=== PATIENT | female | born 1970 | race Caucasian/White ===

== ENCOUNTER 2019-12-18 08:33 | Outpatient (CLI) | payer BC, SELFPAY ==
--- NOTE | 2019-12-18 08:38 | MM_ITS ---
WS: [id number] BILATERAL DIGITAL SCREENING MAMMOGRAPHY WITH CAD CLINICAL INFORMATION: SCREENING COMPARISON: 3 ,019 and 5 ,019 TECHNIQUE: Bilateral CC and MLO views. FINDINGS: Scattered fibroglandular densities bilaterally. No suspicious focal mass, asymmetry, calcifications, or architectural distortion. No evidence of malignancy. MM/[place] [id number] IMPRESSION: BI-RADS: 1-Negative FOLLOW UP: 1 Year Follow-up Recommend return to annual screening mammography.
== END 2019-12-18 08:34 | disposition home or self-care (01) ==
LOC: RADSHAW 08:36
PROVIDERS: PCP Family Medicine; Visit Provider Nurse Practitioner Women's Health
DX: Z12.31 Encounter for screening mammogram for malignant neoplasm of breast (principal)
CPT/HCPCS: 77067

== ENCOUNTER 2021-01-06 08:57 | Outpatient (CLI) | payer OTHER, SELFPAY ==
--- NOTE | 2021-01-06 09:08 | MM_ITS ---
WS: [id number] BILATERAL SCREENING DIGITAL MAMMOGRAM WITH CAD HISTORY: SCREENING COMPARISON: 12/18/2019 and 07/24/2018 Bilateral CC and MLO views submitted. Computer aided detection analyzed. Breast composition: There are scattered areas of fibroglandular density. No suspicious masses, microc alcifications or architectural distortion. MM/[place] [id number] IMPRESSION: BI-RADS: 1-Negative FOLLOW UP: 1 Year Follow-up
== END 2021-01-06 08:58 | disposition home or self-care (01) ==
LOC: RADSHAW 09:02
PROVIDERS: PCP Family Medicine; Visit Provider Family Medicine
DX: Z12.31 Encounter for screening mammogram for malignant neoplasm of breast (principal)
CPT/HCPCS: 77067

== ENCOUNTER → 2021-02-10 11:27 | Outpatient (BNVA) | payer OTHER, SELFPAY | PROVIDERS: PCP Family Medicine; Visit Provider Family Medicine | DX: R07.9 Chest pain, unspecified (principal); R20.2 Paresthesia of skin; M26.609 Unspecified temporomandibular joint disorder, unspecified side | CPT/HCPCS: 80053; 83036; 83880; 84443; 85025; 85651; 86140 ==

== ENCOUNTER 2021-03-09 12:47 | Outpatient (CLI) | payer OTHER, SELFPAY ==
--- NOTE | 2021-03-09 12:51 | CT_ITS ---
WS: [id number] CT HEAD TECHNIQUE: Noncontrast CT of the head obtained from the skullbase to the vertex. CLINICAL INFORMATION: R07.9 - Chest pain, unspecified COMPARISON: None. DLP: 925.[address] scans at [facility] use at least one of these dose optimization techniques: automated e xposure control; mA and/or kV adjustment per patient size (includes targeted exams where dose is matc hed to clinical indication); or iterative reconstruction. FINDINGS: No evidence of intracranial hemorrhage or mass effect. Ventricular system and basal cisterns are jara nt. Mild parenchymal volume loss. No extra-axial fluid collections. No evidence of mass or mass effec t. Normal joaquin-white differentiation. Paranasal sinuses and mastoid air cells are well aerated. .Normal visualized soft tissues. CT/CT head wo con* [id number] IMPRESSION: 1. No evidence of intracranial hemorrhage or mass effect. 2. Mild parenchymal volume loss. 3. No acute intracranial findings.
== END 2021-03-09 12:48 | disposition home or self-care (01) ==
PROVIDERS: PCP Family Medicine; Visit Provider Family Medicine
DX: R07.9 Chest pain, unspecified (principal); R20.2 Paresthesia of skin
CPT/HCPCS: 70450

== ENCOUNTER 2021-04-10 14:54 | Outpatient (CLI) | payer OTHER, SELFPAY ==
--- NOTE | 2021-04-10 15:00 | USCV_ITS ---
Jossie Flores Age: 50 Gender: F : 1970 Exam Date: 04/10/2021 15:04 Ordering Phys: Juliocesar Gipson MD Technologist: Mariam Velasco [place] [facility] [place]: CHEST PAIN Risk Factors: Unknown Previous Vascular Surgery: Unknown Right Brachial BP: / Left Brachial BP: / Right Left Velocity (cm/s) Spectral Plaque Velocity (cm/s) Spectral Plaque Syst/Diast Broadening Syst/Diast Broadening 93.70/ 28.70 Prox CCA 85.80 / 29.20 91.50/ 26.50 Mid CCA 89.30 / 32.00 76.10/ 23.20 Distal CCA 71.70 / 23.20 79.40/ 28.20 Prox ICA 61.40 / 28.70 71.30/ 23.60 Mid ICA 86.20 / 44.10 78.00/ 21.40 Distal ICA 80.70 / 32.10 87.10 ECA 78.30 0.87 ICA/CCA 0.96 Antegrade Vertebral Antegrade 30.70/ 9.70 cm/s 50.40/ 15.00 cm/s Tri Subclavian Tri 67.50 61.90 FINDINGS Normal Doppler flow velocities No significant plaques or any unstable lesions. Antegrade flow in the vertebral arteries bilaterally CONCLUSIONS No significant obstructive lesions noted in the extracranial carotid system. Dr Brain Chapman MD [facility] (Electronically Signed) Final Date: 10 April 2021 17:41 S
--- NOTE | 2021-04-10 15:45 | USCV_ITS ---
Mark Jossie Age: 50 Gender: F : 1970 Exam Date: 04/10/2021 15:24 Ordering Phys: Juliocesar Gipson MD Technologist: Mariam Velasco [place] [facility] [place]: CHEST PAIN BP: 145 / 68 HR: 88 Rhythm: Sinus Technical Quality: Very technically difficult study MEASUREMENTS (Male / Female) Normal Values 2D ECHO LV Diastolic Diameter PLAX 3.6 cm 4.2 - 5.9 / 3.9 - 5.3 cm LV Systolic Diameter PLAX 2.4 cm LV Chamber Size 2.4 cm IVS Diastolic Thickness 1.0 cm 0.6 - 1.0 / 0.6 - 0.9 cm IVS Systolic Thickness 1.3 cm LVPW Diastolic Thickness 1.1 cm 0.6 - 1.0 / 0.6 - 0.9 cm LVPW Systolic Thickness 1.2 cm RV Chamber Size 2.3 cm LVOT Diameter 1.8 cm LV Ejection Fraction 2D Teich 61.3 % LA Diameter 3.1 cm LA Width 3.0 cm LA Height 3.9 cm RA Width 2.7 cm RA Height 3.7 cm Aorta at Sinotubular Diameter 3.3 cm M-MODE Aortic Annulus Diameter 3.1 cm LA Ao Ratio MM 1.1 DOPPLER AV Peak Velocity 105.0 cm/s LVOT Peak Velocity 85.0 cm/s AV Area Cont Eq vti 2.0 cm squared AV Area Cont Eq pk 2.0 cm squared MV Area PHT 5.5 cm squared Mitral E to A Ratio 0.8 MV E' Velocity 33.5 cm/s Mitral E to MV E' Ratio 7.1 Mitral E to LV E' Lateral Ratio 7.5 Mitral E to LV E' Septal Ratio 6.7 TR Peak Velocity 137.4 cm/s TR Peak Gradient 7.6 mmHg TR Mean Velocity 109.8 cm/s TR Mean Gradient 5.6 mmHg TR Velocity Time Integral 32.0 cm Right Atrial Pressure 3.0 mmHg Pulmonary Artery Systolic Pressu 10.6 mmHg PV Peak Velocity 67.0 cm/s RV Acceleration Time 0.1 s RV Ejection Time 0.3 s RV AcT/ET 0.4 FINDINGS Left Ventricle Possibly normal LV size ejection fraction of around 55%. Segmental wall motion analysis difficult because of the poor ultrasonic window. The septum was found to be slightly hypokinetic Right Ventricle Possibly of normal size Right Atrium Possibly of normal size Left Atrium Normal left atrial size. Mitral Valve No gross abnormalities noted Aortic Valve No gross abnormalities noted Tricuspid Valve Trace tricuspid valve regurgitation. Pulmonic Valve Pulmonic valve not well visualized. Pericardium No pericardial effusion. Aorta Normal aortic annulus size. CONCLUSIONS Possibly normal LV size ejection fraction of around 55%. Segmental wall motion analysis difficult because of the poor ultrasonic window. The septum was found to be slightly hypokinetic. Trace tricuspid valve regurgitation. Technically difficult study because of the poor ultrasonic window. No previous study is available for comparison. Dr Brain Chapman MD FAC (Electronically Signed) Final Date: 10 April 2021 17:15 S
== END 2021-04-10 14:55 | disposition home or self-care (01) ==
LOC: US 14:55
PROVIDERS: PCP Family Medicine; Visit Provider Family Medicine
DX: R07.9 Chest pain, unspecified (principal); R20.2 Paresthesia of skin; I07.1 Rheumatic tricuspid insufficiency
CPT/HCPCS: 93306; 93880

== ENCOUNTER 2021-05-09 09:58 | Emergency (ER) | payer OTHER, SELFPAY ==
[2021-05-09 10:07] VITALS: BP 121/88; PULSE 87; RESP 14; TEMP 36.7; O2SAT 96; BMI 33.5
--- NOTE | 2021-05-09 10:17 | ECG_ITS ---
[facility] Test Date: 2021-05-09 Pat Name: Jossie Flores Department: Room: Gender: Female Correctional Program Specialist: : 1970 Requested By: Tigre Curtis Order Number: [id number] Joshua MD: Gillian Scott M.D. Measurements Intervals [place] Rate: 89 P: 32 IA: 153 QRS: 4 QRSD: 78 T: 9 QT: 329 QTc: 401 Interpretive Statements SINUS RHYTHM LOW QRS VOLTAGE IN PRECORDIAL LEADS [QRS DEFLECTION < 1.0 mV IN CHEST LEADS] No previous ECG available for comparison Electronically Signed On 05-10-2021 8:15:19 SKILLED NURSING FACILITY COUNSELOR by Gillian Scott M.D. [id number]
--- NOTE | 2021-05-09 10:17 | XRR_ITS ---
PROCEDURE INFORMATION: Exam: XR Chest Exam date and time: 05/09/2021 10:17 AM Age: 51 years old Clinical indication: Left-sided; Prior surgery; Surgery date: 6+ months; Surgery type: Elective breast reduction; Patient HX: C/O chest pain starting a month ago and has stayed intermittent. C/O left chest pain and left arm today. TECHNIQUE: Imaging protocol: XR of the chest. Views: 1 view. COMPARISON: No relevant prior studies available. FINDINGS: Lungs: Unremarkable. No consolidation. Pleural spaces: Unremarkable. No pleural effusion. No pneumothorax. Heart/Mediastinum: Unremarkable. No cardiomegaly. Bones/joints: Unremarkable. XR/XR chest 1V portable [id number] IMPRESSION: No acute findings.
[2021-05-09 10:49] LABS: Basophils % 0.5 %; Eosinophils # 0.1 10^3/uL (0.0-0.8); Eosinophils % 1.2 %; Hematocrit 49.2 % (37.0-47.0); Hemoglobin 16.1 g/dL (11.5-15.3); Lymphocytes # 2.3 10^3/uL (0.8-4.8); Mean Corpuscular HGB Conc 32.7 g/dL (30.0-36.0); Mean Corpuscular Hemoglobin 31.1 pg (28.0-34.0); Mean Corpuscular Volume 95.2 fl (81-99); Mean Platelet Volume 11.1 fL (7.4-10.4); Monocytes # 0.4 10^3/uL (0.2-0.9); Monocytes % 4.9 %; Neutrophils % 67.1 %; Nucleated Red Blood Cells % 0 %; Platelet Count 307 10^3/cmm (130-400); Red Blood Count 5.17 10^6/uL (4.1-5.3); Red Cell Distribution Width 12.1 % (12.1-15.1); White Blood Count 8.6 10^3/uL (4.0-10.0)
--- NOTE | 2021-05-09 11:12 | ED_ITS ---
HPI - Chest Pain General: Chief Complaint: Chest Pain Stated Complaint: CP Time Seen by Provider: 05/09/21 10:17 History of Present Illness: HPI narrative: 51-year-old female presents emergency room with complaints of chest pain. She has had this for about the last 3 months. Intermittently she will get episodes of chest pain she had an echocardiogram ejection fraction is normal but there was some question about wall motion however the comment in the written portion of the report is that there is a poor ultrasonic windows and they really could not interpret it very well. She does not get any diaphoresis she did get some radiation into the arm of the pain today. She has mild shortness of breath with exertion. Pain currently is completely resolved. She has not been known to have any coronary arteries in the past she is not diabetic. She is currently on atorvastatin as well as carvedilol. MD complaint: chest pain Onset (ago): month(s) Timing of current episode: episodic Prior episodes: Yes Onset: during rest Pain location: left chest Pain radiation: left arm and left shoulder Severity: mild Quality: tightness and aching Relieving factors: nothing Exacerbating factors: nothing Associated symptoms: Reports dyspnea; Deny abdominal pain, diaphoresis, fever(s), leg edema, nausea, palpitations, sense of impending doom, syncope, vomiting or other Treatment prior to arrival: none Review of Systems Const: Denies: fever(s) or diaphoresis ENMT: Denies: throat pain, ear or mastoid pain, nasal discharge or nasal congestion Card: Denies: palpitations or syncope Resp: Reports: dyspnea GI: Denies: abdominal pain, nausea or vomiting : Denies: flank pain, difficulty voiding, dysuria, urinary frequency or urinary urgency Skin/Breast: Denies: rash or pruritus [facility] ED PFSH: Medical History (Updated 05/09/21 @ 14:32 by Tigre Foster DO) Depression Essential hypertension Surgical History (Updated 05/09/21 @ 11:34 by Tigre Foster DO) History of hysterectomy Hx of breast reduction, elective Social History Smoking and tobacco status: never smoked Physical Exam Const: GENERAL APPEARANCE: cooperative and comfortable ORIENTATION/CONSCIOUSNESS: Yes awake, Yes oriented to person, Yes oriented to place and Yes oriented to time HENMT: COMMON NORMALS: normocephalic, atraumatic, hearing grossly normal bilaterally, external ears normal, EAC's normal, TM's normal bilaterally, Normal nasal mucous membranes and turbinates present, moist oral mucous membranes and oropharynx normal HEAD & SCALP: normocephalic and atraumatic NOSE: Normal nasal mucous membranes and turbinates present EXTERNAL EAR: Yes external ears normal EXTERNAL AUDITORY CANAL: EAC's normal TYMPANIC MEMBRANE: TM's normal bilaterally Neck/C-Spine: COMMON NORMALS: no JVD Resp: COMMON NORMALS: normal respiratory effort, No retractions, No use of accessory muscles and clear to auscultation bilaterally AUSCULTATION: clear to auscultation bilaterally Cardio: COMMON NORMALS: no JVD, regular rate, regular rhythm and No murmurs present (Cardio) RATE: regular rate RHYTHM: regular rhythm GI: COMMON NORMALS: Soft to palpation and No hepatosplenomegaly present AUSCULTATION: Yes normoactive bowel sounds PALPATION: Yes Soft to palpation, No Tenderness to palpation present (GI), No Guarding due to palpation present (GI) and Yes No hepatosplenomegaly present Extremity: COMMON NORMALS: normal to inspection, capillary refill normal, no clubbing, cyanosis or edema, no calf tenderness and no pedal edema Neuro: SENSORIUM/ORIENTATION: Yes oriented to person, Yes oriented to place and Yes oriented to time Skin: COMMON NORMALS: no rashes or lesions noted GENERAL SKIN EXAM: no rashes or lesions noted Course Vital Signs: Vital signs: Vital Signs Temperature 98.1 F 05/09/21 10:07 Pulse Rate 92 05/09/21 14:58 Respiratory Rate 18 05/09/21 14:58 Blood Pressure 127/103 05/09/21 14:58 Pulse Oximetry 95 05/09/21 14:58 MDM - Chest Pain MDM Narrative: Medical decision making narrative: Labs imaging and EKG reviewed on the chart. Patient does not have any acute ST changes. We will get her set up for an outpatient Lexiscan sestamibi stress test. Have her stop the candesartan and start isosorbide mononitrate continue aspirin daily. If she has any worsening pain or symptoms return to the emergency room immediately. Lab Data: Labs: Lab Results 05/09/21 05/09/21 05/09/21 10:35 10:35 10:35 WBC 8.6 10^3/uL 10^3/ uL (4.0-10.0) RBC 5.17 10^6/uL 10^6 /uL (4.1-5.3) Hgb 16.1 g/dL H g/dL (11.5-15.3) Hct 49.2 % H % (37.0-47.0) MCV 95.2 fl fl (81-99) MCH 31.1 pg pg (28.0-34.0) MCHC 32.7 g/dL g/dL (30.0-36.0) RDW 12.1 % % (12.1-15.1) Plt Count 307 10^3/cmm 10^3 /cmm (130-400) MPV 11.1 fL H fL (7.4-10.4) Neut % (Auto) 67.1 % % Lymph % (Auto) 26.0 % % Bartholomew % (Auto) 4.9 % % Eos % (Auto) 1.2 % % Baso % (Auto) 0.5 % % Neut # (Auto) 5.80 10^3/uL 10^3 /uL (1.8-7.7) Lymph # (Auto) 2.3 10^3/uL 10^3/ uL (0.8-4.8) Bartholomew # (Auto) 0.4 10^3/uL 10^3/ uL (0.2-0.9) Eos # (Auto) 0.1 10^3/uL 10^3/ uL (0.0-0.8) Baso # (Auto) 0.0 10^3/uL 10^3/ uL (0.0-0.1) Nucleated RBC % (a uto) 0 % % Nucleated RBCs # 0.0 /100WBC /100W BC Sodium 139 mmol/L mmol/L (136-145) Potassium 4.9 mmol/L mmol/L (3.5-5.1) Chloride 104 mmol/L mmol/L (98-107) Carbon Dioxide 25 mmol/L mmol/L (22-29) Anion Gap 14.9 (5-19) BUN 10 mg/dL mg/dL (6-20) Creatinine 0.5 mg/dL mg/dL (0.5-0.9) GFR Calculation 131.1 mL/min H mL /min (90-130) Glucose 82 mg/dL mg/dL (65-115) Calculated Osmolal ity 286 mOsm/kg mOsm/ kg (285-295) Calcium 10.1 mg/dL mg/dL (8.5-10.5) Total Bilirubin 0.4 mg/dL mg/dL (0.15-1.2) AST 25 U/L U/L (0-32) ALT 59 U/L H U/L (0-33) Alkaline Phosphata se 128 IU/L H IU/L (35-105) Troponin T Baselin e 6 ng/L ng/L (0-10) Troponin T 120 Min [place] Troponin T Total Protein 6.5 g/dL L g/dL (6.6-8.7) Albumin 4.5 g/dL g/dL (3.5-5.2) Globulin 2.0 g/dL g/dL (1.3-4.6) 05/09/21 12:10 WBC RBC Hgb Hct MCV MCH MCHC RDW Plt Count MPV Neut % (Auto) Lymph % (Auto) Bartholomew % (Auto) Eos % (Auto) Baso % (Auto) Neut # (Auto) Lymph # (Auto) Bartholomew # (Auto) Eos # (Auto) Baso # (Auto) Nucleated RBC % (a uto) Nucleated RBCs # Sodium Potassium Chloride Carbon Dioxide Anion Gap BUN Creatinine GFR Calculation Glucose Calculated Osmolal ity Calcium Total Bilirubin AST ALT Alkaline Phosphata se Troponin T Baselin e Troponin T 120 Min [place] 6.00 ng/L ng/L (0-10) Delta Troponin T 0 ABS# ABS# (0-10) Total Protein Albumin Globulin Discharge Plan Discharge Patient Disposition: Home Clinical Impression: Chest pain Condition: Stable Prescriptions: New isosorbide mononitrate 30 mg tablet extended release 24 hr 30 mg PO DAILY Qty: 30 RF: 0 Discontinued candesartan 8 mg tablet 8 mg PO DAILY RF: 0 No Action bupropion HCl [Wellbutrin XL] 150 mg tablet extended release 24 hr 150 mg PO QAM RF: 0 carvedilol [Coreg] 3.125 mg tablet 3.125 mg PO BID 30 Days Qty: 60 RF: 0 aspirin 81 mg tablet,delayed release (DR/EC) 81 mg PO DAILY 90 Days Qty: 90 RF: 0 atorvastatin 40 mg tablet 40 mg PO DAILY 90 Days Qty: 90 RF: 1 nitroglycerin 0.4 mg tablet, sublingual 0.4 mg sublingual Q5M PRN (Reason: chest pain) 30 Days Qty: 30 RF: 0 Discharge Orders: Discharge ED (Routine); Ordered 05/09/21 Ordered By: Tigre Foster Referrals: Juliocesar Gipson MD [Primary Care Provider] - Discharge Diet: Usual diet Discharge Activity: Limit activity as instructed Patient Instructions: Opioid Safety Activity Restrictions/Additional Instructions: No heavy exertional activities. Follow-up with your primary care provider on getting the stress test set up that you had discussed with them previously. Stop the candesartan and instead start isosorbide mononitrate. Continue aspirin daily. If you have worsening or change symptoms return to the emergency room. Coding Level of Care Code ED Housekeeping Supervisor for Gato Fwd Exam Comprehensive
[2021-05-09 11:18] LABS: Alanine Aminotransferase 59 U/L (0-33); Albumin Level 4.5 g/dL (3.5-5.2); Alkaline Phosphatase 128 IU/L (35-105); Anion Gap 14.9 (5-19); Aspartate Amino Transferase 25 U/L (0-32); Blood Urea Nitrogen 10 mg/dL (6-20); Calcium 10.1 mg/dL (8.5-10.5); Carbon Dioxide 25 mmol/L (22-29); Chloride 104 mmol/L (98-107); Glomerular Filtration Rate 131.1 mL/min (90-130); Glucose 82 mg/dL (65-115); Osmolality Calculated 286 mOsm/kg (285-295); Potassium 4.9 mmol/L (3.5-5.1); Sodium 139 mmol/L (136-145); Total Bilirubin 0.4 mg/dL (0.15-1.2); Total Protein 6.5 g/dL (6.6-8.7)
[2021-05-09 11:19] LABS: Troponin(5th) Baseline 6 ng/L (0-10)
--- NOTE | 2021-05-09 11:27 | USR_ITS ---
PROCEDURE INFORMATION: Exam: US Abdomen, Limited; Right Upper Quadrant Exam date and time: 05/09/2021 11:27 AM Age: 51 years old Clinical indication: Abnormal findings; Abnormal lab test; Elevated liver enzymes; Additional info: Elevated lfts TECHNIQUE: Imaging protocol: US abdomen. Real time ultrasound with image documentation. Limited exam focused on the right upper quadrant. COMPARISON: No relevant prior studies available. FINDINGS: Liver: Unremarkable. Gallbladder: Small polyps. No gallstones. No gallbladder wall thickening or pericholecystic fluid. Negative sonographic Benito's sign, as per the performing lens generating machine tender. Common bile duct: No stones. No ductal dilatation. Pancreas: Suboptimally visualized. Right kidney: No mass. No definite stones. No hydronephrosis. US/US gall bladder [id number] IMPRESSION: Small gallbladder polyps.
[2021-05-09 11:57] VITALS: BP 129/90; PULSE 84; RESP 24; O2SAT 94
--- NOTE | 2021-05-09 12:17 | ECG_ITS ---
[facility] Test Date: 2021-05-09 Pat Name: Jossie Flores Department: Room: Gender: Female Joggle Press Operator: : 1970 Requested By: Tigre Curtis Order Number: [id number] Joshua MD: Gillian Scott M.D. Measurements Intervals [place] Rate: 74 P: 26 [place]: 168 QRS: 21 QRSD: 76 T: 15 QT: 360 QTc: 401 Interpretive Statements SINUS RHYTHM LOW QRS VOLTAGE IN PRECORDIAL LEADS [QRS DEFLECTION < 1.0 mV IN CHEST LEADS] Compared to ECG 05/09/2021 10:04:26 No significant changes Electronically Signed On 05-10-2021 8:29:27 REFRIGERATION SERVICE INSPECTOR by Gillian Scott M.D. [email or web address]
[2021-05-09 14:04] LABS: Troponin 5 2HR Delta 0 ABS# (0-10)
[2021-05-09 14:58] VITALS: BP 127/103; PULSE 92; RESP 18; O2SAT 95
== END 2021-05-09 14:59 | disposition home or self-care (01) ==
PROVIDERS: Emergency Provider Family Medicine; PCP Family Medicine
DX: R07.9 Chest pain, unspecified (principal); I10 Essential (primary) hypertension; Z79.82 Long term (current) use of aspirin
CPT/HCPCS: 71045; 76705; 80053; 84484; 85025; 93005; 99283

== ENCOUNTER 2021-07-13 06:57 | Outpatient (CLI) | payer OTHER, SELFPAY ==
--- NOTE | 2021-07-13 08:03 | NMCV_ITS ---
NM octavia perf SPECT r/s* [id number] Jossie Flores Age: 51 Gender: F : 1970 Exam Date: 07/13/2021 08:43 Ordering Phys: Juliocesar Gipson MD Technologist: ARANZA Robison Exam Location: [facility] Indications: CHEST PAIN STRESS TEST Please see separate stress test report in [facility] for full findings IMAGE PROTOCOL Rest/Stress 1 Lexiscan Day Radiopharmaceutical Dose (mCi) Administration Site Administered by Rest: Tc-99m 10.9 IV ARANZA Mary Sestamibi Stress:Tc-99m 32.6 IV ARANZA Mary Sestamibi Rest: 13-Jul-2021 60 Discovery 630 Stress: 13-Jul-2021 30 Discovery 630 0.4mg Lexiscan. Images obtained in supine and prone position. SPECT RESULTS Technical Quality: Excellent Raw Data Analysis: Normal Image Corrections: No attenuation or motion correction applied Summed Stress Score: 0 Summed Rest Score: 0 Summed Difference Score: 0 PERFUSION FINDINGS Fairly uniform myocardial tracer uptake. No significant perfusion abnormalities. FUNCTIONAL RESULTS (calculated via Gated SPECT) Stress Image LV EF (%): 80 Stress EDV (mL):75 TID: 1.09 Stress ESV (mL):15 FUNCTIONAL FINDINGS: Segmental wall motion analysis revealing no gross wall motion abnormalities. IMPRESSIONS 1. Unremarkable myocardial perfusion imaging. 2. Normal LV ejection fraction of 80%. 3. LV wall motion analysis revealing no gross wall motion normalities. 4. Normal LV volume. No significant coronary ischemia, based on the above findings Dr Brain Chapman MD [facility] (Electronically Signed) Final Date: 13 July 2021 13:27 S
--- NOTE | 2021-07-13 08:03 | ECG_ITS ---
[facility] Test Date: 2021-07-13 Pat Name: Jossie Flores Department: Room: Gender: Female Grinding Operator: Shelly Álvarez : 1970 Requested By: Juliocesar Gipson Order Number: [id number] Joshua MD: Brain Chapman M.D. Interpretive Statements NAME OF STUDY: LEXISCAN SESTAMIBI STRESS TEST INDICATION: Chest Pain, PROCEDURE: At the baseline, the EKG revealed normal sinus rhythm with some nonspecific T changes in the inferior and anterolateral leads. The baseline blood pressure was 127/83 mm Hg with a heart rate of 84 beats/min. Lexiscan was infused over a period of 20 seconds. A total of 0.4 milligrams of Lexiscan was infused. The stress phase was continued for a total of 5 minutes. Heart rate at the end of the stress phase was 124 with a blood pressure 110/82. The EKG at the peak infusion revealed more prominent ST-T changes in the anterolateral leads . Sestamibi was injected 20 seconds after the Lexiscan infusion. Blood pressure at the end of the recovery phase was 109/78 with a heart rate of 106 per minute. CONCLUSION: 1. Nonspecific EKG changes with the LexiScan infusion 2. No LexiScan induced chest pain or cardiac arrhythmia 3. Normal blood pressure and heart rate response 4. Sestamibi/sestamibi perfusion scan pending; see separate report. Electronically Signed On 07-17-2021 11:51:40 CDT by Brain Chapman M.D. [email or web address]
[2021-07-13 08:32] VITALS: BMI 33.5
[2021-07-13] MEDS: regadenoson 0.4 Mg/5 ml Syringe IVP (09:15)
[2021-07-13 09:37] VITALS: BP 109/78; PULSE 92
== END 2021-07-13 06:58 | disposition home or self-care (01) ==
LOC: RAD 06:58 → CDL 08:07
PROVIDERS: PCP Family Medicine; Visit Provider Family Medicine
DX: R07.9 Chest pain, unspecified (principal); R06.02 Shortness of breath
CPT/HCPCS: 78452; 93017; A9500; J2785

== ENCOUNTER 2022-03-08 09:46 | Outpatient (CLI) | payer OTHER, SELFPAY ==
--- NOTE | 2022-03-08 09:53 | MM_ITS ---
WS: [id number] Bilateral screening 3D tomosynthesis digital mammogram, 03/08/2022 Clinical Data: SCREENING Comparison: 01/06/2021, 12/18/2019, 09/13/2018, 07/24/2018, 01/04/2014. Findings: The breast parenchymal pattern shows fibroglandular tissue. No spiculated masses or clustered calcifi cations are seen. There are no secondary signs of carcinoma. There are mole markers on both breasts. MM/[place] [id number] Impression: 1. Negative bilateral mammogram unchanged. 2. Recommend annual screening mammograms. BIRADS: 1-Negative FOLLOW UP: 1 Year Follow-up The CAD gas and oil checker was used.
== END 2022-03-08 09:47 | disposition home or self-care (01) ==
LOC: RAD 09:46
PROVIDERS: PCP Family Medicine; Visit Provider Family Medicine
DX: Z12.31 Encounter for screening mammogram for malignant neoplasm of breast (principal)
CPT/HCPCS: 77063; 77067

== ENCOUNTER → 2022-03-29 09:42 | Outpatient (BNVA) | payer OTHER, SELFPAY | PROVIDERS: PCP Family Medicine; Visit Provider Family Medicine | DX: I10 Essential (primary) hypertension (principal); Z12.11 Encounter for screening for malignant neoplasm of colon; H61.20 Impacted cerumen, unspecified ear; J32.9 Chronic sinusitis, unspecified | CPT/HCPCS: 80053; 80061; 83036; 84443; 85025 ==

== ENCOUNTER 2022-06-11 06:56 | Day surgery (SDC) | payer OTHER, SELFPAY ==
[2022-06-10 10:23] VITALS: BMI 33.1
[2022-06-11 07:05] VITALS: BP 130/92; PULSE 88; RESP 18; TEMP 36.2; O2SAT 99
--- NOTE | 2022-06-11 07:08 | P.ANESASSM_ITS ---
Pre-Anesthetic Assessment Height/Weight: Height 1.63 m Weight 87.543 kg Temp Pulse Resp BP Pulse Ox O2 Del Method 97.1 F L 88 18 130/92 99 06/11/22 07:05 06/11/22 07:05 06/11/22 07:05 06/11/22 07:05 06/11/22 07:05 06/11/22 07:05 Operation Date: 06/11/22 08:30 Proposed Procedures p Colonoscopy [id number] ,Z11.11(Not Applicable) - Orlando Payton DO Familial anesthetic complications: NOne Was Beta Lesvia taken within 24 hours: Yes Was Clonidine taken within 24 hours: N/A Last intake: > 8hrs Social No alcohol and No tobacco Exam alert, oriented x 3, clear to auscultation bilaterally and regular rate & rhythm Airway Mallampati: Class III Dentition: full CV/HEM Hypertension Metabolic Hyperlipidemia Anesthetic Plan ASA status: 2 Anesthesia: MAC Risk of > 500 ml blood loss (7ml/kg in children): No Medications/Allergies Home Medications Medication Instructions Recorded Confirmed Last Taken Type aspirin 81 mg tablet,delayed 81 mg PO DAILY 90 days #90 tabs 03/29/22 06/10/22 06/09/22 Rx release candesartan 8 mg tablet 8 mg PO DAILY 90 days #90 tabs 03/29/22 06/10/22 06/10/22 Rx nitroglycerin 0.4 mg sublingual 0.4 mg sublingual Q5M PRN chest 03/29/22 06/10/22 Unknown Rx tablet pain 30 days #30 tabs atorvastatin 40 mg tablet 40 mg PO DAILY 06/10/22 06/10/22 06/10/22 History bupropion HCl 150 mg 24 hr tablet, 150 mg PO DAILY 06/10/22 06/10/22 06/10/22 History extended release carvedilol 3.125 mg tablet 3.125 mg PO BID 06/10/22 06/10/22 06/10/22 History Allergies Allergy/AdvReac Type Severity Reaction Status Date / Time No Known Allergies Allergy Verified 04/15/22 11:44 [facility] [place] Anesthesia Medical History (Updated 03/29/22 @ 09:30 by Juliocesar Gipson MD) Depression Essential hypertension Surgical History History of hysterectomy Hx of breast reduction, elective Social History Smoking and tobacco status: never smoked Data Anesthesia Cardiac Studies: Echocardiogram 04/10/21 Sestamibi Stress Test (Cardiology) 07/13
[2022-06-11] MEDS: sodium chloride 0.9% 1,000 ML 30 ML IV (07:18)
--- NOTE | 2022-06-11 08:14 | PM.HP ---
Providers/Chief Complaint Primary Care Provider: Juliocesar Gipson MD Chief Complaint: encounter for screening History of Present Illness Jossie Flores is a 52 year old female here for her first screening colonoscopy. She denies any problems with abdominal pain, nausea, emesis, diarrhea, constipation, hematochezia and/or melena. Only her aunt has had colon cancer before. Review of Systems General: Reports: 10 or more systems reviewed and unremarkable except in HPI and below Medications/Allergies Home Medications Medication Instructions Recorded Confirmed Last Taken Type aspirin 81 mg tablet,delayed 81 mg PO DAILY 90 days #90 tabs 03/29/22 06/10/22 06/10/22 Rx release candesartan 8 mg tablet 8 mg PO DAILY 90 days #90 tabs 03/29/22 06/10/22 06/10/22 Rx nitroglycerin 0.4 mg sublingual 0.4 mg sublingual Q5M PRN chest 03/29/22 06/10/22 Unknown Rx tablet pain 30 days #30 tabs atorvastatin 40 mg tablet 40 mg PO DAILY 06/10/22 06/10/22 06/10/22 History bupropion HCl 150 mg 24 hr tablet, 150 mg PO DAILY 06/10/22 06/10/22 06/10/22 History extended release carvedilol 3.125 mg tablet 3.125 mg PO BID 06/10/22 06/10/22 06/11/22 06:00 History Allergies Allergy/AdvReac Type Severity Reaction Status Date / Time No Known Allergies Allergy Verified 04/15/22 11:44 PFSH Acute PFSH: Medical History Depression Essential hypertension Surgical History History of hysterectomy Hx of breast reduction, elective Social History Smoking and tobacco status: never smoked Vitals/I&O/Wt Last Vital Signs Temp 97.1 F L 06/11/22 07:05 Pulse 88 06/11/22 07:05 Resp 18 06/11/22 07:05 BP 130/92 06/11/22 07:05 Pulse Ox 99 06/11/22 07:05 O2 Del Method 06/11/22 07:05 Weight last 48 hrs Weight 193 lb Physical Exam Narrative: General : Patient is well developed , no acute distress, oriented x3 Head : Normal cephalic, a-traumatic. Ears : Pinnae and external canal are normal. Hearing is normal. Eyes : PERRLA, Sclera and injection are normal. No conjunctival discharge. Nose : Mucous membranes are without erythema. Throat : buccal mucosa is normal, gums are without significant recession or hypertrophy. Lungs : Equal chest rise bilaterally, no use of accessory muscles, trachea is midline. Cor : Rate and rhythm are normal. Abdomen : Soft, ND, NT, no g/r/m Extremities : No edema, no cyanosis or clubbing, dorsalis pedis pulses are present bilaterally, non-tender to palpation of calves. Upper extremities are normal bilaterally. Back : non-tender to palpation, no CVA tenderness. Neuro : CN II - XII intact, Upper and lower extremities have equal and full strength A&P Assessment and plan (1) Encounter for screening colonoscopy: Plan Colonoscopy The risks and benefits of the procedure, including bleeding, infection, intestinal perforation requiring surgery, missed lesion were explained to the patient. The patient is understanding of the risks and wishes to proceed. Attestations Medical Necessity Statement*: Home Coding Level of Care Code Acute Code for Chg Fwd Diagnoses Encounter for screening colonoscopy Z12.11
[2022-06-11 08:32] VITALS: BP 111/72; PULSE 84; RESP 18; TEMP 36.1; O2SAT 97
[2022-06-11 08:37] VITALS: BP 115/80; PULSE 90; RESP 18; O2SAT 96
--- NOTE | 2022-06-11 13:58 | ANE.PACU2 ---
Inpatient post-anesthesia follow up: Airway intact: Yes Vital signs: Temperature 97.0 F Pulse Rate 90 Respiratory Rate 18 Blood Pressure 115/80 Pulse Oximetry 96 Oxygen Delivery Me thod Room Air Oxygen Flow Rate Fraction of Inspir ed Oxygen Hydration adequate: Yes Nausea and vomiting: No Pain level: 1 Mental status: Baseline
== END 2022-06-11 09:00 | disposition home or self-care (01) ==
PROVIDERS: PCP Family Medicine; Visit Provider Surgery
PROC: 0DJD8ZZ Inspection of Lower Intestinal Tract, Via Natural or Artificial Opening Endoscopic (ICD-10-PCS; CPT 45378; principal; 2022-06-11 08:30)
DX: Z12.11 Encounter for screening for malignant neoplasm of colon (principal); Z80.0 Family history of malignant neoplasm of digestive organs; Z79.82 Long term (current) use of aspirin; F32.A Depression, unspecified; I10 Essential (primary) hypertension; K64.8 Other hemorrhoids; E78.5 Hyperlipidemia, unspecified
CPT/HCPCS: 45378; J2704; J7030

== ENCOUNTER 2023-03-31 10:55 | Outpatient (CLI) | payer OTHER, SELFPAY ==
--- NOTE | 2023-03-31 11:00 | MM_ITS ---
WS: [id number] BILATERAL SCREENING DIGITAL TOMOSYNTHESIS MAMMOGRAM WITH CAD HISTORY: SCREENING COMPARISON: 03/08/2022 and 01/06/2021 Bilateral CC and MLO views with tomosynthesis and synthetic mammography submitted. Computer aided det ection analyzed. Breast composition: There are scattered areas of fibroglandular density. No suspicious masses, microc alcifications or architectural distortion. IMPRESSION: MM/[place] [id number] BI-RADS: 1-Negative FOLLOW UP: 1 Year Follow-up
== END 2023-03-31 10:56 | disposition home or self-care (01) ==
LOC: MOBLMAM 11:01
PROVIDERS: PCP Family Medicine; Visit Provider Family Medicine
DX: Z12.31 Encounter for screening mammogram for malignant neoplasm of breast (principal)
CPT/HCPCS: 77063; 77067

== ENCOUNTER → 2023-08-04 08:55 | Outpatient (BNVA) | payer OTHER, SELFPAY | PROVIDERS: PCP Nurse Practitioner Family; Visit Provider Nurse Practitioner Family | DX: F32.A Depression, unspecified (principal); I10 Essential (primary) hypertension; M26.609 Unspecified temporomandibular joint disorder, unspecified side; R53.83 Other fatigue; Z78.0 Asymptomatic menopausal state; Z79.899 Other long term (current) drug therapy | CPT/HCPCS: 80053; 80061; 81003; 82306; 83036; 84439; 84443; 85025; 85651; 86038; 86140; 86431 ==

== ENCOUNTER → 2023-08-12 08:24 | Outpatient (BNVA) | payer OTHER, SELFPAY | PROVIDERS: PCP Nurse Practitioner Family; Visit Provider Nurse Practitioner Family | DX: E83.52 Hypercalcemia (principal); R79.89 Other specified abnormal findings of blood chemistry | CPT/HCPCS: 82310; 83970 ==

== ENCOUNTER 2023-08-29 06:53 | Outpatient (CLI) | payer OTHER, SELFPAY ==
--- NOTE | 2023-08-29 07:00 | US_ITS ---
WS: [id number] THYROID ULTRASOUND HISTORY: E21.3 - Hyperparathyroidism, unspecified COMPARISON: None available. Right lobe: 1.5 cm x 1.9 cm x 4.8 cm (w x ap x l). Volume: 6.3 cm3. Normal sized gland. Hypoechoic nodule present distortion of the thyroid capsule. Thyroid nodule is in the mid gland measuring 1.5 x 1.9 x 1.3 cm. No echogenic foci. Predominantly solid nodule. There is an additional benign appearing cyst in the lower pole. Cyst measures 0.4 x 0.4 x 0.4 cm. Left lobe: 1.3 cm x 2.0 cm x 4.9 cm (w x ap x l). Volume: 5.8 cm3. Normal sized gland. Hypoechoic nodule with a small cystic component in the mid gland. No echogenic fo ci. Mass measures 1.3 x 1.0 x 1.9 cm with increased peripheral vascularity. Isthmus: 0.4 cm. IMPRESSION: 1. TI-RADS 4; nodule mid RIGHT thyroid. Recommend ultrasound-guided FNA. 2. TI-RADS 4: Nodule mid LEFT thyroid. Recommend ultrasound-guided FNA.
== END 2023-08-29 06:54 | disposition home or self-care (01) ==
LOC: RAD 06:53
PROVIDERS: PCP Nurse Practitioner Family; Visit Provider Nurse Practitioner Family
DX: E21.3 Hyperparathyroidism, unspecified (principal); E04.2 Nontoxic multinodular goiter
CPT/HCPCS: 76536

== ENCOUNTER 2023-09-06 10:01 | Outpatient (CLI) | payer OTHER, SELFPAY ==
--- NOTE | 2023-09-06 11:15 | US_ITS ---
WS: [email or web address] ULTRASOUND THYROID FNA CLINICAL INFORMATION: E04.1 - Nontoxic single thyroid nodule TECHNIQUE: Ultrasound-guided FNA FINDINGS: The procedure including risks, benefits, and complications were discussed with the patient who agreed to proceed. Timeout was performed. Using sterile technique patient was prepped and draped in usual sterile fashion. After 1% lidocaine, using ultrasound guidance, a 25-gauge needle was advanc ed into the LEFT thyroid nodule. 4 passes were made with active aspiration. Next the RIGHT thyroid nodule was localized. After 1% lidocaine, using ultrasound guidance, a 25-gaug e needle was advanced into the RIGHT thyroid nodule. 4 passes were made with active aspiration. Pathology was present for slide preparation. No immediate complications. Patient remained in the ultrasound suite 10 minutes postprocedure with intermittent ultrasound to ens ure no hematoma. No hematoma 10 minutes postprocedure. US/US biopsy/FNA thyroid [id number] IMPRESSION: Uncomplicated bilateral ultrasound-guided thyroid FNA
== END 2023-09-06 10:02 | disposition home or self-care (01) ==
LOC: RAD 10:02
PROVIDERS: PCP Nurse Practitioner Family; Visit Provider Nurse Practitioner Family
DX: E04.1 Nontoxic single thyroid nodule (principal)
CPT/HCPCS: 10005; 88173

== ENCOUNTER → 2023-10-31 09:29 | Outpatient (BNVA) | payer OTHER, SELFPAY | PROVIDERS: PCP Nurse Practitioner Family; Visit Provider Nurse Practitioner Family | DX: E21.3 Hyperparathyroidism, unspecified (principal); E55.9 Vitamin D deficiency, unspecified | CPT/HCPCS: 82306; 82310; 83970 ==

== ENCOUNTER → 2024-02-02 14:59 | Outpatient (BNVA) | payer OTHER, SELFPAY | PROVIDERS: PCP Nurse Practitioner Family; Visit Provider Nurse Practitioner Family | DX: E21.3 Hyperparathyroidism, unspecified (principal); E55.9 Vitamin D deficiency, unspecified; E04.1 Nontoxic single thyroid nodule | CPT/HCPCS: 80053; 82306; 82310; 83970; 84439; 84443; 85025 ==

== ENCOUNTER 2024-04-04 09:15 | Outpatient (CLI) | payer OTHER, SELFPAY ==
--- NOTE | 2024-04-04 09:20 | MM_ITS ---
WS: [email or web address] BILATERAL SCREENING DIGITAL TOMOSYNTHESIS MAMMOGRAM WITH CAD HISTORY: SCREENING, status post mammoplasty. COMPARISON: 03/31/2023, 03/08/2022 Bilateral CC and MLO views with tomosynthesis and synthetic mammography submitted. Computer aided det ection analyzed. Breast composition: There are scattered areas of fibroglandular density. No suspicious masses, microc alcifications or architectural distortion. MM/MM scr BI tomosynthesis [id number] IMPRESSION: BI-RADS: 2 - Benign. FOLLOW UP: 1 Year Follow-up
== END 2024-04-04 09:16 | disposition home or self-care (01) ==
LOC: MOBLMAM 09:17
PROVIDERS: PCP Nurse Practitioner Family; Visit Provider Nurse Practitioner Family
DX: Z12.31 Encounter for screening mammogram for malignant neoplasm of breast (principal); R92.323 Mammographic fibroglandular density, bilateral breasts
CPT/HCPCS: 77063; 77067

== ENCOUNTER → 2024-05-16 10:40 | Outpatient (BNVA) | payer OTHER, SELFPAY | PROVIDERS: PCP Nurse Practitioner Family; Visit Provider Nurse Practitioner Family | DX: E21.3 Hyperparathyroidism, unspecified (principal); E55.9 Vitamin D deficiency, unspecified; E04.1 Nontoxic single thyroid nodule; G43.909 Migraine, unspecified, not intractable, without status migrainosus | CPT/HCPCS: 82306; 82310; 82607; 83970; 84443 ==

== ENCOUNTER 2024-06-14 10:41 | Outpatient (CLI) | payer OTHER, SELFPAY ==
--- NOTE | 2024-06-14 11:00 | MR_ITS ---
WS: [email or web address] MRI BRAIN WITH AND WITHOUT CONTRAST HISTORY: G43.909 - Migraine, unspecified, not intractable, without... COMPARISON: CT head 03/09/2021 TECHNIQUE: Multiplanar imaging performed through the brain with MultiHance 18 ml's IV. No acute infarcts are seen. Lopez-white matter differentiation is well preserved. Minimal cerebral atrophy. No prior infarct or significant small vessel disease. No susceptibility artifacts or prior lacunar infarcts. Ventricles and extra-axial spaces are normal. Clivus and pituitary gland are normal. Visualized posterior fossa and brainstem are also normal. No enhancing mass. Small venous angioma adjacent to the RIGHT caudate. Dural venous sinuses are normal. Paranasal sinuses: Extensive sphenoid sinus Position extends into the petrous apices. Air-fluid level and increased soft tissue in the RIGHT pneumatized petrous apex. Pneumatization and sinus disease is contiguous into the central RIGHT sphenoid sinus. LEFT petrous apex is also pneumatized with no disease. The remaining sinus cavities are negative. Mastoid air cells: Normal. Calvarium and scalp: Normal. MR/MR head wo/w con [id number] IMPRESSION: 1. No acute infarct or hemorrhage. 2. No enhancing mass. 3. Venous angioma adjacent to the RIGHT caudate. 4. Pneumatization with air-fluid level and mucoperiosteal disease involving th e RIGHT petrous apex. Sinus disease extends into the RIGHT sphenoid sinus cavit y.
[2024-06-14] MEDS: gadobenate dimeglumine 20 mL vial 18 ML IV (11:28)
--- NOTE | 2024-06-14 12:15 | US_ITS ---
WS: [email or web address] THYROID ULTRASOUND HISTORY: E04.1 - Nontoxic single thyroid nodule COMPARISON: 09/06/2023, 08/29/2023 Right lobe: 1.4 cm x 2.1 cm x 4.1 cm (w x ap x l). Volume: 5.5 cm3. Normal sized thyroid. Well-circumscribed hypoechoic nodule superior pole measures 1.6 x 0.9 x 0.7 cm without increase in size. This nodule is undergone a prior biopsy. Nodule is labeled mid gland on the prior exam. Additional heterogeneity throughout the gland. Left lobe: 1.8 cm x 1.5 cm x 4.8 cm (w x ap x l). Volume: 6.6 cm3. Normal sized gland with heterogeneity. Reidentified is the hypoechoic nodule with a few cystic areas in the mid gland measuring 1.3 x 1.2 x 2.3 cm. This nodule is undergone a prior biopsy. There is additional heterogeneity and a few additional cystic areas. No nodule increasing in size or echogenic foci. Isthmus: 0.2 cm. US/US thyroid [id number] IMPRESSION: 1. Bilateral thyroid nodules have undergone prior biopsy. 2. No new nodule or echogenic foci. LEFT thyroid nodule has slightly increased in size.
== END 2024-06-14 10:42 | disposition home or self-care (01) ==
PROVIDERS: PCP Nurse Practitioner Family; Visit Provider Nurse Practitioner Family
DX: G43.909 Migraine, unspecified, not intractable, without status migrainosus (principal); E21.3 Hyperparathyroidism, unspecified; E04.2 Nontoxic multinodular goiter; R93.0 Abnormal findings on diagnostic imaging of skull and head, not elsewhere classified; J32.3 Chronic sphenoidal sinusitis; R93.89 Abnormal findings on diagnostic imaging of other specified body structures
CPT/HCPCS: 70553; 76536